=== PATIENT | male | born 1980 | race Caucasian/White ===

== ENCOUNTER 2020-06-16 21:57 | Emergency (ER) | payer OTHER ==
[2020-06-17] MEDS ORDERED: IBUPROFEN800 MG PO (01:13)
== END 2020-06-17 01:26 | disposition home or self-care (01) ==
LOC: ER1 21:57
DX: K14.0 Glossitis (principal)
CPT/HCPCS: 99282

== ENCOUNTER 2020-10-13 21:11 | Emergency (ER) | payer OTHER ==
[~2020-10-13 21:11] MED LIST: IBUPROFEN800 MG PO
== END 2020-10-13 23:20 | disposition home or self-care (01) ==
LOC: ER1 21:11
DX: S61.210A Laceration without foreign body of right index finger without damage to nail, initial encounter (principal); W26.0XXA Contact with knife, initial encounter; Y92.009 Unspecified place in unspecified non-institutional (private) residence as the place of occurrence of the external cause; Z23 Encounter for immunization
CPT/HCPCS: 12001; 90471; 90715; 99283

== ENCOUNTER 2020-11-27 09:55 | Emergency (ER) | payer OTHER ==
[2020-11-27 10:38] LABS: HEMOGLOBIN 15.8 gm/dl (14.0-17.5); RED BLOOD COUNT 5.36 M/UL (4.20-5.50); WHITE BLOOD COUNT 7.5 K/UL (4.5-11.0)
[2020-11-27 10:57] LABS: BUN/CREATININE RATIO 11 (0-10)
== END 2020-11-27 14:13 | disposition home or self-care (01) ==
LOC: ER1 09:55
PROVIDERS: Family Medicine
DX: E86.0 Dehydration (principal); C02.9 Malignant neoplasm of tongue, unspecified
CPT/HCPCS: 80053; 81001; 85025; 96374; 96375; 99283; J2060; J2270; J2405; J7120

== ENCOUNTER 2020-12-01 12:07 | Emergency (ER) | payer OTHER ==
[2020-12-01 14:43] LABS: HEMOGLOBIN 16.6 gm/dl (14.0-17.5); RED BLOOD COUNT 5.7 M/UL (4.20-5.50); WHITE BLOOD COUNT 7.8 K/UL (4.5-11.0)
[2020-12-01 15:03] LABS: BUN/CREATININE RATIO 15 (0-10)
[2020-12-01] MEDS ORDERED: MYCOSTATIN100000 UTS PO (15:36)
== END 2020-12-01 16:15 | disposition home or self-care (01) ==
LOC: ER1 12:07
PROVIDERS: Physician Assistant
DX: B37.0 Candidal stomatitis (principal); E86.0 Dehydration; C06.9 Malignant neoplasm of mouth, unspecified; T66.XXXA Radiation sickness, unspecified, initial encounter; Z87.891 Personal history of nicotine dependence; W88.8XXA Exposure to other ionizing radiation, initial encounter
CPT/HCPCS: 71045; 80053; 85025; 96374; 96375; 96376; 99285; J1170; J2405

== ENCOUNTER 2021-11-07 13:34 | Emergency (ER) | payer OTHER ==
[~2021-11-07 13:34] MED LIST changes: +MYCOSTATIN100000 UTS PO
== END 2021-11-07 17:01 | disposition home or self-care (01) ==
LOC: ER1 13:34
DX: S01.81XA Laceration without foreign body of other part of head, initial encounter (principal); Z87.891 Personal history of nicotine dependence; W22.8XXA Striking against or struck by other objects, initial encounter; Y92.89 Other specified places as the place of occurrence of the external cause; Y99.0 Civilian activity done for income or pay
CPT/HCPCS: 12011; 70450; 99283